=== PATIENT | female | born 1960 | race Caucasian/White ===

== ENCOUNTER → 2017-04-04 16:36 | Outpatient (CLI) | payer BC ==
[2014-03-02 12:36] VITALS: BMI 35.5
[~2017-04-04 16:36] MED LIST: PRILOSEC20 MG PO; PRINIVIL10 MG PO; SYNTHROID50 MCG PO; VITAMIN B-121000 MC3 PO; XANAX0.5 MG PO
== END | disposition home or self-care (01) ==
LOC: D.MAMMO 03-21 10:15
DX: Z12.31 Encounter for screening mammogram for malignant neoplasm of breast (principal)

== ENCOUNTER → 2017-11-18 15:13 | Outpatient (CLI) | payer BC ==
[2014-03-02 12:36] VITALS: BMI 35.5
== END | disposition home or self-care (01) ==
LOC: D.CT 15:13
DX: R05 Cough (principal)

== ENCOUNTER 2020-06-29 15:00 | Outpatient (CLI) | payer BC ==
[2014-03-02 12:36] VITALS: BMI 35.5
== END 2020-06-29 23:59 | disposition home or self-care (01) ==
LOC: D.MAMMO 15:00
PROVIDERS: ATTEND Family Medicine
DX: Z12.31 Encounter for screening mammogram for malignant neoplasm of breast (principal)